=== PATIENT | male | born 1995 | race Caucasian/White ===

== ENCOUNTER 2016-10-07 20:45 | Emergency (ER) | payer BC ==
[2016-10-07] MEDS ORDERED: KETOROLAC TROMETHAMINE 30 MG/ML VIAL ONE (21:35)
[2016-10-07] MEDS ORDERED: ONDANSETRON HCL 4 MG/2 ML VIAL ONE (21:54)
--- NOTE | 2016-10-07 22:45 | ER PHYSICIAN DOCUMENTATION ---
Physician Documentation [facility] Name:Amor Anne Age:21 yrs Sex:Male :1995 Arrival Date:10/07/2016 Time:20:45 Bed1 Private MD: Antonio Gordon Disposition: 10/07/16 22:32 Discharged to Home/Self Care. Impression: Viral Illness, Vomiting - Dehydration. - Condition is Good. - Discharge Instructions: VIRAL SYNDROME (Adult). - Prescriptions for Zofran 4 mg Oral Tablet - take 1-2 tablet by ORAL route every 4-6 hours As needed; 10 tablet. - Medical Reconciliation form form. - Follow up: Private Physician; When: As needed; Reason: Continuance of care. - Problem is new. - Symptoms have improved. HPI: 10/07 21:00 This 21 yrs old Male presents to ER via Walk In with complaints of jm Nausea/Vomiting/Diarrhea, Headache. 21:00 The patient presents to the emergency department with nausea, with vomiting, without jm any complaints of abdominal pain. Onset: The symptom(s)/episode began/occurred today. Associated signs and symptoms: Pertinent positives: fever, nausea, vomiting, PAYNE. The patient has not experienced similar symptoms in the past. Historical: - Allergies: No known drug Allergies; - Home Meds: 1. None - PMHx: None; - PSHx: vascular ring; - Tetanus: < 10 years. - Ebola Screening: : Patient denies exposure to infectious person. Patient denies travel to an Ebola-affected area in the 21 days before illness onset. . - Immunization history: Flu Vaccine < 1 year. - Social history: Smoking status: Patient uses tobacco products, current some day smoker. Patient uses alcohol only on a social basis. - Code Status:: Full code. ROS: 21:00 Constitutional: Positive for chills, fatigue, fever, malaise, poor PO intake. jm 21:00 ENT: Positive for sinus congestion, sinus pain, sore throat. 21:00 Respiratory: Negative for cough, shortness of breath. 21:00 Abdomen/GI: Positive for nausea, vomiting, Negative for abdominal pain, diarrhea. 21:00 Neuro: Positive for headache, weakness, Negative for dizziness. Exam: 21:00 Constitutional: The patient appears in no acute distress, alert, awake. jm 21:00 ENT: Posterior pharynx: Tonsils: bilaterally enlarged, with erythema, no exudate, Dental exam: normal, Breath odor: is normal. 21:00 Neck: Thyroid: appears normal, Trachea: is midline with no obvious abnormalities, Lymph nodes: lymphadenopathy is appreciated, anterior cervical nodes. 21:00 Cardiovascular: Rate: tachycardic, Rhythm: regular. 21:00 Respiratory: Respirations: normal, Breath sounds: are normal. 21:00 Abdomen/GI: Bowel sounds: normal, Palpation: abdomen is soft and non-tender. Vital Signs: 21:42 BP 89 / 51; Pulse 105; Resp 16; Pulse Ox 95% on R/A; lb 22:05 BP 89 / 51; Pulse 100; Resp 16; Pulse Ox 95% ; lb 22:42 BP 101 / 61; Pulse 90; Resp 14; Temp 98.8(O); Pulse Ox 95% on R/A; Pain 0/10; lb MDM: 20:52 Patient medically screened. 23:21 Differential diagnosis: viral gastroenteritis, viral illness. Data reviewed: vital jm signs, nurses notes, lab test result(s), and as a result, I will discharge patient. Counseling: I had a detailed discussion with the patient and/or guardian regarding: the historical points, exam findings, and any diagnostic results supporting the discharge/admit diagnosis, the need for outpatient follow up, with the patient's primary care provider. Medication response: The patient's symptoms have resolved, 2LNS. 10/07 21:27 Order name: RAPID STREP SCRN CUL IF NEG; Complete Time: 21:36 [facility] 10/08 07:40 Order name: THROAT FOR BETA STREP [facility] 10/07 21:20 Order name: Iv Saline Lock; Complete Time: 21:31 10/07 21:20 Order name: Pulse Ox Continuous; Complete Time: 21:31 Dispensed Medications: 21:31 Drug: NS 0.9% 1000 ml; Route: IV; Rate: bolus; Site: right antecubital; lb 22:04 Follow up: IV Status: Completed infusion; IV Intake: 1000ml lb 21:31 Drug: Toradol 30 mg; Route: IVP; Site: right antecubital; lb 22:04 Follow up: Response: Pain is decreased lb 21:42 Drug: Zofran 4 mg; Route: IVP; Infused Over: 2 mins; Site: right antecubital; lb 22:42 Follow up: Response: Nausea is decreased lb 22:05 Drug: NS 0.9% 1000 ml; Route: IV; Rate: bolus; Site: right antecubital; lb 22:41 Follow up: IV Status: Completed infusion; IV Intake: 1000ml lb 22:41 Drug: Zofran 1 tablet; Route: PO; lb 22:41 Follow up: Response: Pharmacy closed - take home med pack lb Signatures: Antonio He MD MD jm Bollock, Lynda lb
--- NOTE | 2016-10-07 22:45 | ER NURSING DOCUMENTATION ---
Nurse's Notes [facility] Name:Amor Anne Age:21 yrs Sex:Male :1995 Arrival Date:10/07/2016 Time:20:45 Bed1 Private MD: Diagnosis:Viral Illness;Vomiting - Dehydration Presentation: 10/07 20:50 Presenting complaint: Patient states: not feeling well for 24 hrs with chest lb congestion, cough, fever. Transition of care: patient was not received from another setting of care. Notified ED Physician of Neri Simon notified. Care prior to arrival: Medication(s) given: sudafed, mucinex ,tylenol. 20:50 Acuity: JAMAR 3 lb 20:50 Method Of Arrival: Walk In lb Triage Assessment: 20:53 General: Appears uncomfortable, Behavior is appropriate for age, pleasant. Pain: Denies lb pain. Neuro: No deficits noted. Cardiovascular: Rhythm is sinus tachycardia. Respiratory: Airway is patent Trachea midline Respiratory effort is even, unlabored, Respiratory pattern is regular, Breath sounds are clear bilaterally. GI: Reports denies n/v/d. Historical: - Allergies: No known drug Allergies; - Home Meds: 1. None - PMHx: None; - PSHx: vascular ring; - Tetanus: < 10 years. - Ebola Screening: : Patient denies exposure to infectious person. Patient denies travel to an Ebola-affected area in the 21 days before illness onset. . - Immunization history: Flu Vaccine < 1 year. - Social history: Smoking status: Patient uses tobacco products, current some day smoker. Patient uses alcohol only on a social basis. - Code Status:: Full code. Screenin:44 Infectious Disease Risk None. Abuse screen: Denies threats or abuse. Denies injuries lb from another. Nutritional screening: No deficits noted. Assessment: 21:15 GI: Abdomen is flat, non- distended Bowel sounds present X 4 quads. Abd is soft X 4 lb quads. Vital Signs: 21:42 BP 89 / 51; Pulse 105; Resp 16; Pulse Ox 95% on R/A; lb 22:05 BP 89 / 51; Pulse 100; Resp 16; Pulse Ox 95% ; lb 22:42 BP 101 / 61; Pulse 90; Resp 14; Temp 98.8(O); Pulse Ox 95% on R/A; Pain 0/10; lb ED Course: 20:49 Patient arrived in ED. ma1 20:50 Tenisha Sepulveda is Primary Nurse. lb 20:52 Antonio He MD is Attending Physician. 20:52 Triage completed. lb 21:30 Inserted peripheral IV: 20 gauge in right antecubital area. lb 22:43 Valuables Remains with patient Patient has correct armband on for positive lb identification. Bed in low position. Call light in reach. Side rails up X 1. Administered Medications: 21:31 Drug: NS 0.9% 1000 ml; Route: IV; Rate: bolus; Site: right antecubital; lb 22:04 Follow up: IV Status: Completed infusion; IV Intake: 1000ml lb 21:31 Drug: Toradol 30 mg; Route: IVP; Site: right antecubital; lb 22:04 Follow up: Response: Pain is decreased lb 21:42 Drug: Zofran 4 mg; Route: IVP; Infused Over: 2 mins; Site: right antecubital; lb 22:42 Follow up: Response: Nausea is decreased lb 22:05 Drug: NS 0.9% 1000 ml; Route: IV; Rate: bolus; Site: right antecubital; lb 22:41 Follow up: IV Status: Completed infusion; IV Intake: 1000ml lb 22:41 Drug: Zofran 1 tablet; Route: PO; lb 22:41 Follow up: Response: Pharmacy closed - take home med pack lb Intake: 22:04 IV: 1000ml; Total: 1000ml. lb 22:41 IV: 1000ml; Total: 2000ml. lb Outcome: 22:32 Discharge ordered by . 22:42 Discharged to [place] lb 22:42 Condition: good 22:42 Discharge Assessment: Patient awake, alert and oriented x 3. No cognitive and/or functional deficits noted. Patient verbalized understanding of disposition instructions. 22:42 Instructed on discharge instructions, follow up and referral plans. 22:42 IV D/Jhony 22:44 Patient left the ED. lb 10/08 20:10 Discharge F/U Call: Unable to reach: left voicemail: [email or web address] Signatures: Antonio He MD MD jm Kruger, Meg, RN RN mk2 Crystal Null Tenisha Sepulveda Candy [facility]
[2016-10-07] MEDS ORDERED: ONDANSETRON ODT PREPAC 4 MG TAB.RAPDIS PO ONE (22:47)
== END 2016-10-07 22:45 | disposition home or self-care (01) ==
LOC: ER 20:45
DX: E86.0 Dehydration (principal); B34.9 Viral infection, unspecified; R11.2 Nausea with vomiting, unspecified; R51 Headache; J02.9 Acute pharyngitis, unspecified; R50.9 Fever, unspecified; R00.0 Tachycardia, unspecified
CPT/HCPCS: 86403; 87081; 87880; 96361; 96374; 96375; 99283; J1885; J2405